=== PATIENT | female | born 1955 | race Caucasian/White ===

== ENCOUNTER 2016-06-30 09:42 | Day surgery (SDC) | payer BC ==
[~2016-06-30 09:42] MED LIST: Lactated Ringers 1,000 ML IV SCH; Sodium Chloride 0.9% 10 ML Syringe FLUSH PRN
[2016-06-30] MEDS ORDERED: Propofol 200 MG/20 ML SDV IV ONE (11:30)
--- NOTE | 2016-06-30 12:03 | PCM.OPNOTE ---
- General Post-Op/Procedure Note Date of Surgery/Procedure: 06/30/16 Operative Procedure(s): c scope with bx Findings: ascending colon polyp sigmoid colon polyp rectal polyps x7 Pre Op Diagnosis: change in stool caliber Post-Op Diagnosis: ascending colon polyp. sigmoid colon polyp. rectal polyps x7 Anesthesia Technique: MAC Primary Surgeon: Hong Bonilla Anesthesia Provider: Antonino Freitas Pathology: ascending colon polyp sigmoid colon polyp rectal polyps x7 Complications: None Condition: Good Free Text/Narrative:: see dictation
[2016-06-30 13:35] VITALS: BP 144/90
--- NOTE | 2016-06-30 17:18 | OR ---
DATE OF OPERATION: 06/30/2016 SURGEON: Hong Bonilla MD PROCEDURE PERFORMED: Colonoscopy with cold forceps biopsy. PREOPERATIVE DIAGNOSIS: Change in stool caliber. POSTOPERATIVE DIAGNOSIS: Polyp of the ascending colon, polyp of the sigmoid, and polyp of the rectum x7. INDICATIONS FOR PROCEDURE: This is a 61-year-old white female, who is referred with the above-mentioned complaints. She was offered and accepted colonoscopy. DESCRIPTION OF PROCEDURE: After an excellent IV sedation was administered, digital rectal exam was performed. No marked abnormality was noted. Flexible colonoscope was inserted and advanced to the cecum without difficulty. The following findings were noted: Ascending colon, small polypoid lesion, biopsied with cold biopsy forceps and sent for permanent. Transverse colon, unremarkable. Descending colon, unremarkable. Sigmoid, a small polypoid lesion, biopsied and sent for permanent. Rectum, a total of approximately 7 hyperplastic appearing polyps, were biopsied and submitted in 1 container. The colon was deflated, scope was removed. The patient tolerated the procedure well and was taken to recovery room in good condition. /[id number] /MODL
== END 2016-06-30 13:05 | disposition home or self-care (01) ==
LOC: FB.SDS 09:42
PROVIDERS: ATTEND Surgery
PROC: 0DBK8ZX Excision of Ascending Colon, Via Natural or Artificial Opening Endoscopic, Diagnostic (ICD-10-PCS; principal; 2016-06-30)
PROC: 0DBP8ZX Excision of Rectum, Via Natural or Artificial Opening Endoscopic, Diagnostic (ICD-10-PCS; 2016-06-30)
PROC: 0DBN8ZX Excision of Sigmoid Colon, Via Natural or Artificial Opening Endoscopic, Diagnostic (ICD-10-PCS; 2016-06-30)
DX: D12.2 Benign neoplasm of ascending colon (principal); D12.5 Benign neoplasm of sigmoid colon; K62.1 Rectal polyp; I10 Essential (primary) hypertension; J45.909 Unspecified asthma, uncomplicated; F34.1 Dysthymic disorder; F32.9 Major depressive disorder, single episode, unspecified; F10.10 Alcohol abuse, uncomplicated; Z79.899 Other long term (current) drug therapy; F17.210 Nicotine dependence, cigarettes, uncomplicated; R00.2 Palpitations
CPT/HCPCS: 45380; 88305; J2704; J7120

== ENCOUNTER 2023-02-13 08:08 | Emergency (ER) | payer MEDICARE, BC ==
[2023-02-13] MEDS ORDERED: Morphine 2 MG/ML SYRINGE IVPUSH ONE ×3 (08:33→15:13)
[2023-02-13] MEDS: Sodium Chloride 0.9% 10 ML Syringe FLUSH PRN ×4 (08:36→15:15)
[2023-02-13 08:56] LABS: BASOPHILS PERCENT AUTO 0.4 % (0.2-1.5); EOSINOPHILS PERCENT AUTO 0.1 % (0.6-8.1); HEMATOCRIT 36.4 % (34.2-48.2); HEMOGLOBIN 12.8 g/dL (11.4-15.5); LYMPHOCYTES ABSOLUTE AUTO 0.7 x10-3/uL (1.0-4.4); LYMPHOCYTES PERCENT AUTO 7.9 % (18.4-52.1); MEAN CORPUSCULAR HEMOGLOBIN 35.5 pg (23.9-33.9); MEAN CORPUSCULAR HGB CONC 35.1 g/dL (31.9-34.8); MEAN CORPUSCULAR VOLUME 101.4 fL (76.7-100.5); MEAN PLATELET VOLUME 8.9 fL (7.1-12.4); MONOCYTES ABSOLUTE AUTO 0.7 x10-3/uL (0.3-1.0); MONOCYTES PERCENT AUTO 7.8 % (4.4-15.7); NEUTROPHILS ABSOLUTE AUTO 7.1 x10-3/uL (1.5-6.3); NEUTROPHILS PERCENT AUTO 83.8 % (30.8-76.2); PLATELET COUNT,PLT 204 x10(3)uL (151-488); RED BLOOD CELL COUNT 3.59 x10(6)uL (3.60-5.20); RED CELL DISTRIBUTION WIDTH 12.6 % (12.3-16.5); WHITE BLOOD CELL COUNT,WBC 8.5 x10-3/uL (3.0-10.3)
[2023-02-13 08:58] LABS: BLOOD UREA NITROGEN,BUN 18 mg/dL (7-18); BUN/CREATININE RATIO 22.5 (9-20); CALCIUM 9.4 mg/dL (8.6-10.2); CARBON DIOXIDE,CO2 23 mmol/L (21-32); CHLORIDE,CL 100 mmol/L (100-110); CREATININE 0.8 mg/dL (0.55-1.02); ESTIMATED GFR 82 mL/min (>60); GLUCOSE RANDOM 110 mg/dL (80-116); POTASSIUM,K 4.4 mmol/L (3.5-5.3); SODIUM,NA 137 mmol/L (135-145)
[2023-02-13 09:05] LABS: INR 0.96 (1.00-1.24); PROTHROMBIN TIME 9.9 sec (9.0-11.1)
[2023-02-13 09:07] VITALS: PULSE 110
[2023-02-13 09:08] LABS: PTT,PARTIAL THROMBOPLSTIN TIME 26.4 SECONDS (24.4-33.2)
[2023-02-13 09:10] LABS: A/G RATIO 1.1; ALANINE AMINOTRANSFERASE,ALT 142 U/L (12-36); ALBUMIN 3.6 g/dL (3.2-4.6); ALKALINE PHOSPHATASE 95 IU/L (56-112); ASPARTATE AMNIOTRANSFERASE,AST 111 IU/L (5-25); BILIRUBIN TOTAL 0.6 mg/dL (0.1-1.3); PROTEIN TOTAL,TP 6.9 g/dL (6.0-8.0)
[2023-02-13] MEDS ORDERED: Sodium Chloride 0.9% 1,000 ML IV SCH (10:00)
[2023-02-13] MEDS ORDERED: Labetalol 20 MG/4 ML Syringe IVPUSH ONE (10:17)
[2023-02-13] MEDS ORDERED: Losartan 50 MG Tab PO ONE (11:03)
[2023-02-13 11:10] VITALS: BP 149/97
== END 2023-02-13 15:25 ==
LOC: FB.ED 08:08
DX: S72.002A Fracture of unspecified part of neck of left femur, initial encounter for closed fracture (principal); W01.0XXA Fall on same level from slipping, tripping and stumbling without subsequent striking against object, initial encounter; Y92.009 Unspecified place in unspecified non-institutional (private) residence as the place of occurrence of the external cause; I10 Essential (primary) hypertension; J45.909 Unspecified asthma, uncomplicated; E66.9 Obesity, unspecified; Z68.27 Body mass index [BMI] 27.0-27.9, adult
CPT/HCPCS: 36415; 73502; 80053; 85025; 85610; 85730; A9270; J2270; J3490; J7030; 51702; 96361; 96374; 96375; 96376; 99285-25